=== PATIENT | female | born 1985 | race Caucasian/White ===

== ENCOUNTER 2020-10-09 08:02 | Outpatient (CLI) | payer OTHER | END 2020-10-09 08:03 | disposition home or self-care (01) | LOC: CSHCT 08:02 | PROVIDERS: ATTEND Student in an Organized Health Care Education/Training Program | DX: R61 Generalized hyperhidrosis (principal); N63.20 Unspecified lump in the left breast, unspecified quadrant | CPT/HCPCS: 71270 ==

== ENCOUNTER 2021-11-07 06:47 | Emergency (ER) | payer MEDICAID, OTHER ==
[2021-11-07] MEDS ORDERED: Ondansetron PF 4 MG/2 ML Vial ONE ×2 (07:39→09:40)
[2021-11-07 07:55] LABS: #Monocytes 0.4 10x3/uL (0.0-1.1); #Neutrophils 4.5 10x3/uL (1.5-8.4); %Basophils 0.3 % (0.0-2.0); %Eosinophils 0.3 % (0.0-6.0); %Lymphocytes 18.2 % (18.0-47.0); %Monocytes 6.6 % (0.0-10.0); %Neutrophils 74.4 % (40.0-75.0); Hemoglobin 12.8 g/dL (12.0-15.5); Mean Corpuscular HGB CONC 35.6 g/dL (32.0-36.0); Mean Corpuscular Hemoglobin 31.8 pg (27.0-33.0); Mean Corpuscular Volume 89.6 fl (81.6-98.3); Mean Platelet Volume 9.9 fl (7.4-10.4); Platelet Count 247 10x3/uL (150-450); Red Blood Cell (RBC) Count 4.02 10x6/uL (3.90-5.03); White Blood Cell (WBC) Count 6.1 10x3/uL (3.5-10.5)
[2021-11-07 08:00] LABS: BHCG - Serum Negative (NEGATIVE); Pregs Control Background? CLEAR/WHITE (CLR/WHITE); Pregs Control Bar Appear? YES (CONTROL BAR)
[2021-11-07 08:12] LABS: ALT (SGPT) 8 U/L (8-55); AST (SGOT) 14 U/L (5-34); Albumin 4.3 g/dL (3.5-5.0); Alkaline Phosphatase 48 U/L (40-110); Anion Gap 13 mmol/L (10-20); BUN (Urea Nitrogen) 14 mg/dL (7.0-18.7); Bilirubin, Total 1.3 mg/dL (0.2-1.2); Calc. Creatinine Clearance 0 mL/min (70-130); Carbon Dioxide 21 mmol/L (22-29); Chloride 109 mmol/L (98-107); Globulin 2.6 g/dL (2.4-3.5); Glucose 101 mg/dL (70-105); Potassium 3.8 mmol/L (3.5-5.1); Protein, Total 6.9 g/dL (6.0-8.3); Sodium 139 mmol/L (136-145)
[2021-11-07] MEDS ORDERED: Dicyclomine 20 MG/2 ML VIAL ONE (09:40)
[2021-11-07 10:02] LABS: Bilirubin Neg (Negative); Blood, Urine 250 (Negative); Glucose, Urine (Dipstick) Normal (Negative); Ketone, Urine 15 mg/dL (Negative); Leukocyte 100 (Negative); Nitrite Negative (Negative); Protein, Urine (Dipstick) 100 mg/dl (Neg-Trace); Specific Gravity, Urine 1.005 (1.002-1.036); Urobilinogen Normal mg/dL (Less than 2)
[2021-11-07 10:04] LABS: Clarity Cloudy (Clear)
[2021-11-07 10:15] LABS: RBC/HPF Greater than 50 HPF (0-3)
[2021-11-07 10:22] LABS: Bacteria/HPF Rare-Few HPF (None Seen); Squamous Epithelial 0-3 HPF (0-3); Transitional Epithelial 0-3 HPF (None Seen)
== END 2021-11-07 10:55 | disposition home or self-care (01) ==
LOC: CSHERS 06:47
DX: R11.2 Nausea with vomiting, unspecified (principal); R19.7 Diarrhea, unspecified
CPT/HCPCS: 80053; 81003; 81015; 84703; 85025; 96372; 96374; 96376; J0500; J2405

== ENCOUNTER 2022-01-17 16:04 | Emergency (ER) | payer OTHER ==
[2022-01-17 16:39] LABS: Bilirubin Neg (Negative); Blood, Urine 150 (Negative); Clarity Clear (Clear); Glucose, Urine (Dipstick) Normal (Negative); Ketone, Urine Negative (Negative); Leukocyte 100 (Negative); Nitrite Negative (Negative); Protein, Urine (Dipstick) 30 mg/dl (Neg-Trace); Specific Gravity, Urine 1.025 (1.002-1.036); Urobilinogen Normal mg/dL (Less than 2)
[2022-01-17 16:40] LABS: Pregnancy Test - Urine (BHCG) Negative (Negative); Pregu Control Background? CLEAR/WHITE (CLR/WHITE); Pregu Control Bar Appear? YES (CONTROL BAR); Specific Gravity 1.025 (1.002-1.036)
[2022-01-17 16:52] LABS: #Monocytes 0.5 10x3/uL (0.0-1.1); #Neutrophils 6.7 10x3/uL (1.5-8.4); %Basophils 0.4 % (0.0-2.0); %Eosinophils 0.5 % (0.0-6.0); %Lymphocytes 14.7 % (18.0-47.0); %Monocytes 5.6 % (0.0-10.0); %Neutrophils 78.4 % (40.0-75.0); Hemoglobin 13.1 g/dL (12.0-15.5); Mean Corpuscular HGB CONC 34.4 g/dL (32.0-36.0); Mean Corpuscular Hemoglobin 31.9 pg (27.0-33.0); Mean Corpuscular Volume 92.7 fl (81.6-98.3); Platelet Count 242 10x3/uL (150-450); Red Blood Cell (RBC) Count 4.11 10x6/uL (3.90-5.03); White Blood Cell (WBC) Count 8.5 10x3/uL (3.5-10.5)
[2022-01-17] MEDS ORDERED: Morphine 4 MG/ML VIAL ONE (16:58)
[2022-01-17] MEDS ORDERED: Ondansetron PF 4 MG/2 ML Vial ONE (16:58)
[2022-01-17 16:59] LABS: Squamous Epithelial 0-3 HPF (0-3)
[2022-01-17 17:00] LABS: Bacteria/HPF Rare-Few HPF (None Seen); Mucous/LPF Rare LPF (<2+)
[2022-01-17 17:05] LABS: ALT (SGPT) 9 U/L (8-55); AST (SGOT) 11 U/L (5-34); Albumin 4.3 g/dL (3.5-5.0); Alkaline Phosphatase 53 U/L (40-110); Anion Gap 11 mmol/L (10-20); BUN (Urea Nitrogen) 10 mg/dL (7.0-18.7); Bilirubin, Total 0.8 mg/dL (0.2-1.2); Calc. Creatinine Clearance 0 mL/min (70-130); Calcium 9.2 mg/dL (7.8-10.44); Carbon Dioxide 23 mmol/L (22-29); Chloride 109 mmol/L (98-107); Estimated GFR 109; Globulin 2.8 g/dL (2.4-3.5); Glucose 111 mg/dL (70-105); Lipase 12 U/L (8-78); Potassium 3.6 mmol/L (3.5-5.1); Protein, Total 7.1 g/dL (6.0-8.3); Sodium 139 mmol/L (136-145)
[2022-01-17] MEDS ORDERED: Ketorolac Tromethamine 30 MG/ML VIAL ONE (19:08)
[2022-01-17] MEDS ORDERED: cefTRIAXone\\ROCEPHIN 500 MG VIAL ONE (20:29)
[2022-01-17] MEDS ORDERED: Lidocaine 1% MPF 2 ML VIAL ONE (20:30)
[2022-01-18 12:59] LABS: Chlamydia by PCR Not Detected (NotDetected); GC by PCR Not Detected (NotDetected)
== END 2022-01-17 20:37 | disposition home or self-care (01) ==
LOC: CSHERS 16:04
DX: N83.201 Unspecified ovarian cyst, right side (principal); K58.9 Irritable bowel syndrome, unspecified
CPT/HCPCS: 74176; 80053; 81003; 81015; 81025; 83690; 85025; 87480; 87491; 87510; 87591; 87660; 96361; 96372; 96374; 96375; J0696; J1885; J2270; J2405

== ENCOUNTER 2022-06-18 11:54 | Emergency (ER) | payer OTHER ==
[2022-06-18 13:01] LABS: #Monocytes 0.4 10x3/uL (0.0-1.1); #Neutrophils 5.1 10x3/uL (1.5-8.4); %Basophils 0.1 % (0.0-2.0); %Eosinophils 0.4 % (0.0-6.0); %Neutrophils 75.2 % (40.0-75.0); Hemoglobin 13.3 g/dL (12.0-15.5); Mean Corpuscular HGB CONC 34.6 g/dL (32.0-36.0); Mean Corpuscular Hemoglobin 31.7 pg (27.0-33.0); Mean Corpuscular Volume 91.4 fl (81.6-98.3); Mean Platelet Volume 9.6 fl (7.4-10.4); Platelet Count 280 10x3/uL (150-450); RBC Distribution Width 12.3 % (11.5-14.5); White Blood Cell (WBC) Count 6.8 10x3/uL (3.5-10.5)
[2022-06-18 13:13] LABS: ALT (SGPT) 12 U/L (8-55); AST (SGOT) 15 U/L (5-34); Albumin 4.5 g/dL (3.5-5.0); Alkaline Phosphatase 46 U/L (40-110); Anion Gap 11 mmol/L (10-20); BUN (Urea Nitrogen) 9 mg/dL (7.0-18.7); Bilirubin, Total 0.9 mg/dL (0.2-1.2); Calc. Creatinine Clearance 0 mL/min (70-130); Calcium 9.3 mg/dL (7.8-10.44); Carbon Dioxide 21 mmol/L (22-29); Chloride 110 mmol/L (98-107); Estimated GFR 118; Globulin 2.7 g/dL (2.4-3.5); Glucose 100 mg/dL (70-105); Lipase 9 U/L (8-78); Protein, Total 7.2 g/dL (6.0-8.3); Sodium 138 mmol/L (136-145)
[2022-06-18 13:34] LABS: Bilirubin Neg (Negative); Blood, Urine 50 (Negative); Clarity Clear (Clear); Glucose, Urine (Dipstick) Normal (Negative); Ketone, Urine 150 mg/dL (Negative); Leukocyte Negative (Negative); Nitrite Negative (Negative); Protein, Urine (Dipstick) Negative (Neg-Trace); Specific Gravity, Urine 1.025 (1.005-1.030); Urobilinogen Normal mg/dL (Less than 2)
[2022-06-18 13:35] LABS: Pregnancy Test - Urine (BHCG) POSITIVE (Negative); Pregu Control Background? CLEAR/WHITE (CLR/WHITE); Pregu Control Bar Appear? YES (CONTROL BAR); Specific Gravity 1.025 (1.002-1.036)
[2022-06-18] MEDS ORDERED: Ondansetron PF 4 MG/2 ML Vial ONE ×2 (13:54→16:40)
[2022-06-18 13:58] LABS: Bacteria/HPF 2+ HPF (None Seen); Squamous Epithelial 0-3 HPF (0-3); Transitional Epithelial 0-3 HPF (None Seen); WBC/HPF 0-3 HPF (0-3)
[2022-06-18] MEDS ORDERED: Dicyclomine 20 MG TAB ONE (16:42)
== END 2022-06-18 17:00 | disposition home or self-care (01) ==
LOC: CSHERS 11:54
DX: O21.9 Vomiting of pregnancy, unspecified (principal); O26.91 Pregnancy related conditions, unspecified, first trimester; R10.10 Upper abdominal pain, unspecified; R82.71 Bacteriuria; Z3A.01 Less than 8 weeks gestation of pregnancy
CPT/HCPCS: 36415; 80053; 81003; 81015; 81025; 83690; 85025; 87086; 96361; 96374; 96376; J2405

== ENCOUNTER 2022-06-22 10:07 | Emergency (ER) | payer OTHER ==
[2022-06-22 11:44] LABS: #Monocytes 0.5 10x3/uL (0.0-1.1); #Neutrophils 5.6 10x3/uL (1.5-8.4); %Basophils 0.3 % (0.0-2.0); %Eosinophils 0.5 % (0.0-6.0); %Lymphocytes 17.8 % (18.0-47.0); %Monocytes 6.1 % (0.0-10.0); Hemoglobin 13.5 g/dL (12.0-15.5); Mean Corpuscular HGB CONC 35.1 g/dL (32.0-36.0); Mean Corpuscular Hemoglobin 31.7 pg (27.0-33.0); Mean Corpuscular Volume 90.4 fl (81.6-98.3); Platelet Count 255 10x3/uL (150-450); Red Blood Cell (RBC) Count 4.26 10x6/uL (3.90-5.03); White Blood Cell (WBC) Count 7.5 10x3/uL (3.5-10.5)
[2022-06-22 12:12] LABS: ALT (SGPT) 7 U/L (8-55); AST (SGOT) 15 U/L (5-34); Albumin 4.4 g/dL (3.5-5.0); Alkaline Phosphatase 46 U/L (40-110); Anion Gap 13 mmol/L (10-20); BUN (Urea Nitrogen) 10 mg/dL (7.0-18.7); Bilirubin, Total 0.9 mg/dL (0.2-1.2); Calc. Creatinine Clearance 0 mL/min (70-130); Calcium 9.4 mg/dL (7.8-10.44); Carbon Dioxide 21 mmol/L (22-29); Chloride 106 mmol/L (98-107); Estimated GFR 118; Globulin 2.7 g/dL (2.4-3.5); Glucose 79 mg/dL (70-105); Lipase 8 U/L (8-78); Potassium 3.7 mmol/L (3.5-5.1); Protein, Total 7.1 g/dL (6.0-8.3); Sodium 136 mmol/L (136-145)
[2022-06-22] MEDS ORDERED: Promethazine HCl 25 MG/ML VIAL ONE (12:45)
[2022-06-22 12:56] LABS: Bilirubin Neg (Negative); Blood, Urine 10 (Negative); Clarity Clear (Clear); Glucose, Urine (Dipstick) Normal (Negative); Ketone, Urine 150 mg/dL (Negative); Leukocyte 25 (Negative); Nitrite Negative (Negative); Protein, Urine (Dipstick) Negative (Neg-Trace); Specific Gravity, Urine 1.015 (1.005-1.030); Urobilinogen Normal mg/dL (Less than 2)
[2022-06-22 13:09] LABS: Bacteria/HPF Rare-Few HPF (None Seen); RBC/HPF 0-3 HPF (0-3); Squamous Epithelial 0-3 HPF (0-3); WBC/HPF 0-3 HPF (0-3)
== END 2022-06-22 14:10 | disposition home or self-care (01) ==
LOC: CSHERS 10:07
DX: O21.0 Mild hyperemesis gravidarum (principal); Z3A.01 Less than 8 weeks gestation of pregnancy
CPT/HCPCS: 80053; 81003; 81015; 83690; 85025; 96361; 96374; 96375; J2550

== ENCOUNTER 2022-06-28 17:40 | Emergency (ER) | payer MEDICAID, OTHER ==
[2022-06-28 18:33] LABS: Bilirubin Neg (Negative); Blood, Urine 250 (Negative); Clarity Clear (Clear); Glucose, Urine (Dipstick) Normal (Negative); Ketone, Urine 50 mg/dL (Negative); Leukocyte Negative (Negative); Nitrite Negative (Negative); Protein, Urine (Dipstick) Negative (Neg-Trace); Urobilinogen Normal mg/dL (Less than 2); pH, Urine 6.5 (5.0-9.0)
[2022-06-28 18:37] LABS: #Basophils 0.1 10x3/uL (0.0-0.2); #Monocytes 0.5 10x3/uL (0.0-1.1); #Neutrophils 7.8 10x3/uL (1.5-8.4); %Basophils 0.5 % (0.0-2.0); %Eosinophils 0.3 % (0.0-6.0); %Lymphocytes 18.9 % (18.0-47.0); %Monocytes 5.1 % (0.0-10.0); %Neutrophils 74.7 % (40.0-75.0); Hemoglobin 14.5 g/dL (12.0-15.5); Mean Corpuscular HGB CONC 35.8 g/dL (32.0-36.0); Mean Corpuscular Hemoglobin 32.1 pg (27.0-33.0); Mean Corpuscular Volume 89.6 fl (81.6-98.3); Mean Platelet Volume 10.1 fl (7.4-10.4); Platelet Count 285 10x3/uL (150-450); RBC Distribution Width 11.9 % (11.5-14.5); Red Blood Cell (RBC) Count 4.52 10x6/uL (3.90-5.03); White Blood Cell (WBC) Count 10.4 10x3/uL (3.5-10.5)
[2022-06-28 18:42] LABS: Bacteria/HPF 1+ HPF (None Seen); RBC/HPF 0-3 HPF (0-3); Squamous Epithelial 0-3 HPF (0-3); WBC/HPF 0-3 HPF (0-3)
== END 2022-06-28 19:53 | disposition home or self-care (01) ==
LOC: CSHERS 17:40
DX: O20.0 Threatened abortion (principal); O23.41 Unspecified infection of urinary tract in pregnancy, first trimester; N39.0 Urinary tract infection, site not specified; Z3A.01 Less than 8 weeks gestation of pregnancy
CPT/HCPCS: 76856; 81003; 81015; 83690; 84702; 85025; 86900; 86901; 87086

== ENCOUNTER 2022-06-30 09:02 | Emergency (ER) | payer OTHER ==
[2022-06-30 09:52] LABS: #Monocytes 0.4 10x3/uL (0.0-1.1); #Neutrophils 6.7 10x3/uL (1.5-8.4); %Basophils 0.5 % (0.0-2.0); %Eosinophils 0.4 % (0.0-6.0); %Lymphocytes 15.3 % (18.0-47.0); %Monocytes 4.4 % (0.0-10.0); %Neutrophils 79.2 % (40.0-75.0); Hemoglobin 14.1 g/dL (12.0-15.5); Mean Corpuscular HGB CONC 35.4 g/dL (32.0-36.0); Mean Corpuscular Volume 90.2 fl (81.6-98.3); Mean Platelet Volume 9.9 fl (7.4-10.4); Platelet Count 288 10x3/uL (150-450); Red Blood Cell (RBC) Count 4.41 10x6/uL (3.90-5.03); White Blood Cell (WBC) Count 8.4 10x3/uL (3.5-10.5)
[2022-06-30 10:00] LABS: Bilirubin Neg (Negative); Blood, Urine 250 (Negative); Clarity Cloudy (Clear); Glucose, Urine (Dipstick) Normal (Negative); Ketone, Urine 15 mg/dL (Negative); Leukocyte 25 (Negative); Nitrite Negative (Negative); Protein, Urine (Dipstick) 100 mg/dl (Neg-Trace); Specific Gravity, Urine 1.025 (1.005-1.030); Urobilinogen Normal mg/dL (Less than 2)
[2022-06-30 10:11] LABS: RBC/HPF Greater than 50 HPF (0-3)
[2022-06-30 10:13] LABS: Bacteria/HPF Rare-Few HPF (None Seen); Mucous/LPF 1+ LPF (<2+)
[2022-06-30] MEDS ORDERED: Promethazine HCl 25 MG/ML VIAL ONE (11:14)
[2022-06-30] MEDS ORDERED: Acetaminophen 500 MG TAB ONE (11:50)
[2022-06-30 12:55] LABS: Anion Gap 15 mmol/L (10-20); BUN (Urea Nitrogen) 9 mg/dL (7.0-18.7); Calc. Creatinine Clearance 0 mL/min (70-130); Calcium 9.9 mg/dL (7.8-10.44); Carbon Dioxide 19 mmol/L (22-29); Chloride 107 mmol/L (98-107); Estimated GFR 112; Glucose 106 mg/dL (70-105); Sodium 137 mmol/L (136-145)
[2022-06-30] MEDS ORDERED: Metoclopramide HCl 10 MG/2 ML VIAL ONE (13:44)
== END 2022-06-30 16:09 | disposition home or self-care (01) ==
LOC: CSHERS 09:02
DX: O20.0 Threatened abortion (principal); E86.0 Dehydration; Z3A.01 Less than 8 weeks gestation of pregnancy
CPT/HCPCS: 36415; 76856; 80048; 81003; 81015; 84702; 85025; 87086; 96365; 96372; J2550; J2765

== ENCOUNTER 2022-07-05 19:05 | Emergency (ER) | payer OTHER ==
[2022-07-05] MEDS ORDERED: Metoclopramide HCl 10 MG/2 ML VIAL ONE (19:34)
[2022-07-05] MEDS ORDERED: diphenhydrAMINE 50 MG/ML VIAL ONE (19:34)
[2022-07-05 19:44] LABS: #Monocytes 0.4 10x3/uL (0.0-1.1); #Neutrophils 9.9 10x3/uL (1.5-8.4); %Basophils 0.3 % (0.0-2.0); %Lymphocytes 7.9 % (18.0-47.0); %Monocytes 3.3 % (0.0-10.0); Hemoglobin 13.9 g/dL (12.0-15.5); Mean Corpuscular HGB CONC 35.5 g/dL (32.0-36.0); Mean Corpuscular Hemoglobin 31.9 pg (27.0-33.0); Mean Corpuscular Volume 89.7 fl (81.6-98.3); Mean Platelet Volume 10.1 fl (7.4-10.4); Platelet Count 283 10x3/uL (150-450); RBC Distribution Width 11.8 % (11.5-14.5); Red Blood Cell (RBC) Count 4.36 10x6/uL (3.90-5.03); White Blood Cell (WBC) Count 11.3 10x3/uL (3.5-10.5)
[2022-07-05 19:47] LABS: ALT (SGPT) 11 U/L (8-55); AST (SGOT) 12 U/L (5-34); Albumin 4.5 g/dL (3.5-5.0); Alkaline Phosphatase 45 U/L (40-110); Anion Gap 18 mmol/L (10-20); BUN (Urea Nitrogen) 11 mg/dL (7.0-18.7); Bilirubin, Total 1.1 mg/dL (0.2-1.2); Calc. Creatinine Clearance 0 mL/min (70-130); Calcium 9.7 mg/dL (7.8-10.44); Carbon Dioxide 18 mmol/L (22-29); Chloride 105 mmol/L (98-107); Estimated GFR 112; Globulin 2.9 g/dL (2.4-3.5); Glucose 116 mg/dL (70-105); Protein, Total 7.4 g/dL (6.0-8.3); Sodium 137 mmol/L (136-145)
[2022-07-05] MEDS ORDERED: Acetaminophen 500 MG TAB ONE (21:14)
[2022-07-05] MEDS ORDERED: Famotidine/PF 20 mg/2ml Vial ONE (22:17)
[2022-07-05] MEDS ORDERED: Promethazine HCl 25 MG/ML VIAL ONE (22:33)
[2022-07-05 22:37] LABS: Bilirubin Neg (Negative); Blood, Urine 250 (Negative); Clarity Clear (Clear); Glucose, Urine (Dipstick) Normal (Negative); Ketone, Urine 150 mg/dL (Negative); Leukocyte Negative (Negative); Nitrite Negative (Negative); Protein, Urine (Dipstick) 30 mg/dl (Neg-Trace); Urobilinogen Normal mg/dL (Less than 2)
[2022-07-05 22:47] LABS: Bacteria/HPF 1+ HPF (None Seen); RBC/HPF 0-3 HPF (0-3); Squamous Epithelial 0-3 HPF (0-3); WBC/HPF 0-3 HPF (0-3)
== END 2022-07-05 23:40 | disposition home or self-care (01) ==
LOC: CSHERS 19:05
DX: O21.0 Mild hyperemesis gravidarum (principal); O99.281 Endocrine, nutritional and metabolic diseases complicating pregnancy, first trimester; Z3A.01 Less than 8 weeks gestation of pregnancy; D72.829 Elevated white blood cell count, unspecified
CPT/HCPCS: 80053; 81003; 81015; 84702; 85025; 87086; 96361; 96374; 96375; J1200; J2550; J2765; S0028

== ENCOUNTER 2022-07-15 17:49 | Inpatient (IN) | payer OTHER ==
[2022-07-15 18:58] LABS: #Monocytes 0.5 10x3/uL (0.0-1.1); #Neutrophils 8.7 10x3/uL (1.5-8.4); %Basophils 0.2 % (0.0-2.0); %Eosinophils 0.1 % (0.0-6.0); %Monocytes 4.4 % (0.0-10.0); %Neutrophils 84.9 % (40.0-75.0); Hemoglobin 13.7 g/dL (12.0-15.5); Mean Corpuscular HGB CONC 36.6 g/dL (32.0-36.0); Mean Corpuscular Hemoglobin 31.9 pg (27.0-33.0); Platelet Count 265 10x3/uL (150-450); RBC Distribution Width 11.9 % (11.5-14.5); White Blood Cell (WBC) Count 10.2 10x3/uL (3.5-10.5)
[2022-07-15 19:09] LABS: ALT (SGPT) 11 U/L (8-55); AST (SGOT) 14 U/L (5-34); Albumin 4.3 g/dL (3.5-5.0); Alkaline Phosphatase 39 U/L (40-110); Anion Gap 16 mmol/L (10-20); BUN (Urea Nitrogen) 9 mg/dL (7.0-18.7); Bilirubin, Total 1.4 mg/dL (0.2-1.2); Calc. Creatinine Clearance 0 mL/min (70-130); Calcium 9.6 mg/dL (7.8-10.44); Carbon Dioxide 18 mmol/L (22-29); Chloride 105 mmol/L (98-107); Estimated GFR 119; Globulin 2.8 g/dL (2.4-3.5); Glucose 88 mg/dL (70-105); Lipase 9 U/L (8-78); Potassium 3.7 mmol/L (3.5-5.1); Protein, Total 7.1 g/dL (6.0-8.3); Sodium 135 mmol/L (136-145)
[2022-07-15 20:40] LABS: Bilirubin Neg (Negative); Blood, Urine 50 (Negative); Clarity Clear (Clear); Glucose, Urine (Dipstick) Normal (Negative); Ketone, Urine 150 mg/dL (Negative); Leukocyte Negative (Negative); Nitrite Negative (Negative); Protein, Urine (Dipstick) 30 mg/dl (Neg-Trace); Urobilinogen Normal mg/dL (Less than 2)
[2022-07-15] MEDS ORDERED: Meclizine HCl 25 MG TAB ONE (20:40)
[2022-07-15 20:52] LABS: Bacteria/HPF 3+ HPF (None Seen); Mucous/LPF 4+ LPF (<2+); RBC/HPF 0-3 HPF (0-3); Squamous Epithelial 0-3 HPF (0-3); WBC/HPF 0-3 HPF (0-3)
[2022-07-15] MEDS ORDERED: cefTRIAXone\\ROCEPHIN 1 GM VIAL ONE (21:52)
[2022-07-15 23:42] VITALS: BMI 23.3
[2022-07-15] MEDS ORDERED: hydrALAZINE 20 MG/ML VIAL SLOW IVP PRN (23:55)
[2022-07-16] MEDS ORDERED: Acetaminophen 500 MG TAB PO PRN (00:01)
[2022-07-16] MEDS ORDERED: Promethazine HCl 25 MG in Sodium Chloride 0.9% 50 ML IVPB PRN (00:02)
[2022-07-16] MEDS: Ondansetron PF 4 MG/2 ML Vial IVP PRN ×2 (00:32→17:27)
[2022-07-16 00:57] LABS: Amphetamine Not Detected (NotDetected); Barbiturates Screen Not Detected (NotDetected); Benzodiazepine Screen Not Detected (NotDetected); Cocaine Metabolite Screen Not Detected (NotDetected); Methadone Not Detected (NotDetected); Methamphetamine Not Detected (NotDetected); Opiate Screen Not Detected (NotDetected); Oxycodone Screen Not Detected (NotDetected); Phencyclidine (PCP) Not Detected (NotDetected); THC/Cannabinoid Screen Detected (NotDetected); Tricyclic Screen Not Detected (NotDetected)
[2022-07-16] MEDS: Multivitamins, Adult 10 ML, Folic Acid 1 MG, Thiamine HCl 100 MG in Dextrose 5 %-0.45 %... IV SCH (01:41)
[2022-07-16 02:41] LABS: SARS-CoV-2 NAA Rapid Test Not Detected (NotDetected)
[2022-07-16] MEDS: Metoclopramide HCl 10 MG/2 ML VIAL IVP SCH ×3 (05:38→23:01)
[2022-07-16] MEDS: CEFAZOLIN 1 GM in Sodium Chloride 0.9% 100 ML IVPB SCH ×3 (05:38→23:01)
[2022-07-16] MEDS ORDERED: FLU VACC QS2022-23(6MOS UP)/PF 60 MCG/0.5 ML SYRINGE IM ONE (09:00)
[2022-07-16] MEDS: Lactated Ringer's 1,000 ML IV SCH ×2 (11:06→19:30)
[2022-07-17] MEDS: Multivitamins, Adult 10 ML, Folic Acid 1 MG, Thiamine HCl 100 MG in Dextrose 5 %-0.45 %... IV SCH (00:43)
[2022-07-17] MEDS: Metoclopramide HCl 10 MG/2 ML VIAL IVP SCH ×3 (06:07→21:16)
[2022-07-17] MEDS: CEFAZOLIN 1 GM in Sodium Chloride 0.9% 100 ML IVPB SCH ×3 (06:07→21:16)
[2022-07-17] MEDS: Lactated Ringer's 1,000 ML IV SCH ×3 (06:12→19:15)
[2022-07-17 12:51] LABS: Thyroglobulin Antibody Less than 12.0 IU/mL (<40 Normal); Thyroid Peroxidase IgG Ab Less than 4.0 IU/mL (<25 Normal)
[2022-07-17 20:30] VITALS: BP 98/53; TEMP 98.4
== END 2022-07-17 22:25 | disposition home or self-care (01) | DRG 832 ==
LOC: CSHERS 17:49 → CSHPP 23:27
PROVIDERS: ADMIT Obstetrics & Gynecology; ATTEND Obstetrics & Gynecology
DX: O21.0 Mild hyperemesis gravidarum (principal); N30.00 Acute cystitis without hematuria; O23.11 Infections of bladder in pregnancy, first trimester; O99.341 Other mental disorders complicating pregnancy, first trimester; F41.9 Anxiety disorder, unspecified; F32.A Depression, unspecified; F43.10 Post-traumatic stress disorder, unspecified; Z20.822 Contact with and (suspected) exposure to COVID-19; Z90.49 Acquired absence of other specified parts of digestive tract; Z98.890 Other specified postprocedural states; Z91.012 Allergy to eggs; Z91.011 Allergy to milk products; Z91.014 Allergy to mammalian meats; Z91.018 Allergy to other foods; Z79.899 Other long term (current) drug therapy; Z3A.09 9 weeks gestation of pregnancy; O34.211 Maternal care for low transverse scar from previous cesarean delivery
CPT/HCPCS: 36415; 80053; 80306; 81003; 81015; 83690; 84443; 84702; 85025; 86376; 86800; 87086; 96374; J0690; J0696; J2405; J2550; J2765; J3411; J3490; J7042; J7120

== ENCOUNTER 2022-07-25 19:19 | Emergency (ER) | payer OTHER ==
[2022-07-25 20:08] LABS: Bilirubin Neg (Negative); Blood, Urine 50 (Negative); Clarity Cloudy (Clear); Glucose, Urine (Dipstick) Normal (Negative); Ketone, Urine 150 mg/dL (Negative); Leukocyte Negative (Negative); Nitrite Negative (Negative); Protein, Urine (Dipstick) Negative (Neg-Trace); Urobilinogen Normal mg/dL (Less than 2)
[2022-07-25 20:19] LABS: WBC/HPF 0-3 HPF (0-3)
[2022-07-25 20:20] LABS: Bacteria/HPF 2+ HPF (None Seen); Mucous/LPF 2+ LPF (<2+)
[2022-07-25 20:27] LABS: #Monocytes 0.3 10x3/uL (0.0-1.1); #Neutrophils 6.3 10x3/uL (1.5-8.4); %Basophils 0.3 % (0.0-2.0); %Eosinophils 0.3 % (0.0-6.0); %Lymphocytes 15.9 % (18.0-47.0); %Monocytes 4.3 % (0.0-10.0); %Neutrophils 78.9 % (40.0-75.0); Hemoglobin 12.9 g/dL (12.0-15.5); Mean Corpuscular HGB CONC 35.4 g/dL (32.0-36.0); Mean Corpuscular Hemoglobin 31.5 pg (27.0-33.0); Mean Corpuscular Volume 88.8 fl (81.6-98.3); Mean Platelet Volume 10.3 fl (7.4-10.4); Platelet Count 270 10x3/uL (150-450); RBC Distribution Width 12.2 % (11.5-14.5)
[2022-07-25 20:30] LABS: ALT (SGPT) 11 U/L (8-55); AST (SGOT) 13 U/L (5-34); Albumin 4.1 g/dL (3.5-5.0); Alkaline Phosphatase 37 U/L (40-110); Anion Gap 15 mmol/L (10-20); BUN (Urea Nitrogen) 6 mg/dL (7.0-18.7); Bilirubin, Total 0.7 mg/dL (0.2-1.2); Calc. Creatinine Clearance 0 mL/min (70-130); Calcium 9.3 mg/dL (7.8-10.44); Carbon Dioxide 19 mmol/L (22-29); Chloride 106 mmol/L (98-107); Estimated GFR 121; Globulin 2.6 g/dL (2.4-3.5); Glucose 86 mg/dL (70-105); Lipase 8 U/L (8-78); Potassium 3.7 mmol/L (3.5-5.1); Protein, Total 6.7 g/dL (6.0-8.3); Sodium 136 mmol/L (136-145)
[2022-07-25] MEDS ORDERED: Acetaminophen 500 MG TAB ONE (22:28)
[2022-07-25] MEDS ORDERED: Ondansetron PF 4 MG/2 ML Vial ONE (22:46)
== END 2022-07-25 23:13 | disposition home or self-care (01) ==
LOC: CSHERS 19:19
DX: O99.891 Other specified diseases and conditions complicating pregnancy (principal); R10.84 Generalized abdominal pain; Z3A.10 10 weeks gestation of pregnancy
CPT/HCPCS: 76801; 80053; 81003; 81015; 83690; 85025; 96374; J2405

== ENCOUNTER 2022-08-30 07:49 | Outpatient (CLI) | payer OTHER | END 2022-08-30 07:50 | disposition home or self-care (01) | LOC: CSHULT 07:49 | PROVIDERS: ATTEND Obstetrics & Gynecology | DX: N63.20 Unspecified lump in the left breast, unspecified quadrant (principal) ==

== ENCOUNTER 2022-09-04 16:54 | Emergency (ER) | payer OTHER ==
[2022-09-04 18:03] LABS: Bilirubin Neg (Negative); Blood, Urine Negative (Negative); Clarity Clear (Clear); Glucose, Urine (Dipstick) Normal (Negative); Ketone, Urine Negative (Negative); Leukocyte Negative (Negative); Nitrite Negative (Negative); Protein, Urine (Dipstick) Negative (Neg-Trace); Specific Gravity, Urine 1.015 (1.005-1.030); Urobilinogen Normal mg/dL (Less than 2)
[2022-09-04] MEDS ORDERED: Acetaminophen 325 MG TAB ONE (19:00)
== END 2022-09-04 19:55 | disposition home or self-care (01) ==
LOC: CSHERS 16:54
DX: O99.891 Other specified diseases and conditions complicating pregnancy (principal); R10.2 Pelvic and perineal pain; Z3A.16 16 weeks gestation of pregnancy
CPT/HCPCS: 76815; 81003

== ENCOUNTER 2022-11-24 19:50 | Day surgery (SDC) | payer OTHER ==
[2022-11-24 20:17] VITALS: BMI 28.7
[2022-11-24] MEDS ORDERED: Acetaminophen 500 MG TAB PO PRN (21:10)
[2022-11-24] MEDS ORDERED: hydrALAZINE 20 MG/ML VIAL SLOW IVP PRN (21:10)
[2022-11-24] MEDS ORDERED: Cyclobenzaprine 10 MG TAB PO SCH (21:15)
[2022-11-24 21:44] LABS: #Monocytes 0.5 10x3/uL (0.0-1.1); #Neutrophils 8.7 10x3/uL (1.5-8.4); %Basophils 0.2 % (0.0-2.0); %Eosinophils 0.2 % (0.0-6.0); %Lymphocytes 10.5 % (18.0-47.0); %Monocytes 4.5 % (0.0-10.0); %Neutrophils 84.1 % (40.0-75.0); Hemoglobin 11.5 g/dL (12.0-15.5); Mean Corpuscular HGB CONC 34.4 g/dL (32.0-36.0); Mean Platelet Volume 9.5 fl (7.4-10.4); Platelet Count 253 10x3/uL (150-450); RBC Distribution Width 12.1 % (11.5-14.5); Red Blood Cell (RBC) Count 3.59 10x6/uL (3.90-5.03); White Blood Cell (WBC) Count 10.4 10x3/uL (3.5-10.5)
[2022-11-24 21:51] LABS: Bilirubin Neg (Negative); Blood, Urine Negative (Negative); Clarity Clear (Clear); Glucose, Urine (Dipstick) Normal (Negative); Ketone, Urine Negative (Negative); Leukocyte Negative (Negative); Nitrite Negative (Negative); Protein, Urine (Dipstick) Negative (Neg-Trace); Specific Gravity, Urine 1.005 (1.005-1.030); Urobilinogen Normal mg/dL (Less than 2)
[2022-11-24 21:58] LABS: ALT (SGPT) 10 U/L (8-55); AST (SGOT) 13 U/L (5-34); Albumin 3.3 g/dL (3.5-5.0); Alkaline Phosphatase 61 U/L (40-110); Anion Gap 12 mmol/L (10-20); BUN (Urea Nitrogen) 9 mg/dL (7.0-18.7); Bilirubin, Total 0.3 mg/dL (0.2-1.2); Calc. Creatinine Clearance 141 mL/min (70-130); Calcium 8.9 mg/dL (7.8-10.44); Carbon Dioxide 23 mmol/L (22-29); Chloride 108 mmol/L (98-107); Estimated GFR 119; Globulin 2.6 g/dL (2.4-3.5); Glucose 89 mg/dL (70-105); Potassium 4.5 mmol/L (3.5-5.1); Protein, Total 5.9 g/dL (6.0-8.3); Sodium 138 mmol/L (136-145)
== END 2022-11-24 23:50 | disposition home or self-care (01) ==
LOC: CSHLD/OP 19:50
PROVIDERS: ATTEND Obstetrics & Gynecology
DX: O99.891 Other specified diseases and conditions complicating pregnancy (principal); M54.9 Dorsalgia, unspecified; O99.613 Diseases of the digestive system complicating pregnancy, third trimester; K58.0 Irritable bowel syndrome with diarrhea; O60.03 Preterm labor without delivery, third trimester; Z3A.28 28 weeks gestation of pregnancy; Z91.012 Allergy to eggs; Z91.011 Allergy to milk products; Z91.018 Allergy to other foods; Z91.048 Other nonmedicinal substance allergy status
CPT/HCPCS: 80053; 81003; 85025; 99284

== ENCOUNTER 2022-11-25 20:34 | Emergency (ER) | payer MEDICAID, OTHER, SELFPAY ==
[2022-11-25] MEDS ORDERED: Boostrix 0.5 ML (Tdap) VIAL (>/=7 yrs of age) ONE (22:01)
== END 2022-11-25 23:01 | disposition home or self-care (01) ==
LOC: CSHERS 20:34
DX: S01.511A Laceration without foreign body of lip, initial encounter (principal); W55.03XA Scratched by cat, initial encounter; Z23 Encounter for immunization
CPT/HCPCS: 12011; 90471; 90715

== ENCOUNTER 2023-02-10 00:06 | Inpatient (IN) | payer OTHER ==
[2023-02-10] MEDS ORDERED: hydrALAZINE 20 MG/ML VIAL SLOW IVP PRN ×3 (00:34→06:23)
[2023-02-10 00:47] LABS: Fetal Membranes Rupture RUPTURE DETECTED (No Rupture)
[2023-02-10 00:48] VITALS: BMI 31.6
[2023-02-10] MEDS ORDERED: Bicitra 30 ML UDCUP PO PRN (01:00)
[2023-02-10] MEDS ORDERED: CEFAZOLIN 2 GM in Sodium Chloride 0.9% 100 ML IVPB SCH (01:00)
[2023-02-10] MEDS ORDERED: Famotidine/PF 20 mg/2ml Vial SLOW IVP PRN (01:00)
[2023-02-10] MEDS ORDERED: Ondansetron PF 4 MG/2 ML Vial IVP PRN ×2 (01:03→02:42)
[2023-02-10] MEDS ORDERED: Promethazine HCl 25 MG/ML VIAL IM PRN ×2 (01:03→02:42)
[2023-02-10] MEDS ORDERED: Lactated Ringer's 1,000 ML IV SCH (01:15)
[2023-02-10 02:31] LABS: Hematocrit 34.6 % (34.9-44.5); Hemoglobin 12.1 g/dL (12.0-15.5); Mean Corpuscular Hemoglobin 31.8 pg (27.0-33.0); Mean Corpuscular Volume 91.1 fl (81.6-98.3); Mean Platelet Volume 9.9 fl (7.4-10.4); Platelet Count 238 10x3/uL (150-450); RBC Distribution Width 12.8 % (11.5-14.5)
[2023-02-10 02:37] LABS: HIV (1/2) Antibody/Antigen Non-Reactive (NonReactive)
[2023-02-10 02:38] LABS: HBSAg Index 0.17 S/CO (0-0.99); Hep B Surf Ag - L&D Non-Reactive S/CO (NonReactive); Syphilis Antibody Nonreactive (Nonreactive); Syphilis Antibody Index 0.03 S/CO (<1.00 Non-Reactive)
[2023-02-10] MEDS ORDERED: Fentanyl 50 MCG/1 ML VIAL SLOW IVP PRN (02:42)
[2023-02-10] MEDS ORDERED: Naloxone HCl 0.4 mg/ml Vial IVP PRN ×2 (02:42)
[2023-02-10] MEDS ORDERED: Moisturizing Cream (Eucerin) 113 GM JAR TOP PRN (02:42)
[2023-02-10] MEDS ORDERED: diphenhydrAMINE 50 MG/ML VIAL IVP PRN (02:42)
[2023-02-10] MEDS ORDERED: Meperidine HCl/PF 25 MG/ML VIAL SLOW IVP PRN (02:42)
[2023-02-10] MEDS ORDERED: Promethazine HCl 25 MG SUPP PR PRN (02:42)
[2023-02-10] MEDS ORDERED: Naloxone HCl 0.4 mg/ml Vial IV PRN (02:42)
[2023-02-10] MEDS ORDERED: Ondansetron HCl/PF 4 MG/2 ML Vial IVP PRN (02:42)
[2023-02-10] MEDS ORDERED: Communication Order-Pharmacy FS SCH (02:45)
[2023-02-10] MEDS ORDERED: Ketorolac Tromethamine 30 MG/ML VIAL IVP SCH (02:45)
[2023-02-10] MEDS ORDERED: Morphine PF 10 MG/10 ML VIAL ONE (03:11)
[2023-02-10] MEDS ORDERED: Dexamethasone 4 mg/ml Vial ONE (03:12)
[2023-02-10] MEDS ORDERED: Phenylephrine 10 MG/ML VIAL ONE (03:12)
[2023-02-10] MEDS ORDERED: Ketorolac Tromethamine 30 MG/ML VIAL ONE (03:12)
[2023-02-10] MEDS ORDERED: Ondansetron PF 4 MG/2 ML Vial ONE (03:12)
[2023-02-10] MEDS ORDERED: Oxytocin 10 UNITS/ML VIAL ONE (03:12)
[2023-02-10] MEDS ORDERED: CEFAZOLIN 2 GM VIAL ONE (03:40)
[2023-02-10] MEDS ORDERED: Azithromycin 500 MG VIAL ONE (03:40)
[2023-02-10] MEDS ORDERED: ePHEDrine Sulfate 50 MG/10 ML VIAL ONE (04:22)
[2023-02-10] MEDS ORDERED: Lanolin Ointment 7 GM TUBE TOP PRN (06:23)
[2023-02-10] MEDS ORDERED: Bisacodyl 10 MG SUPP PR PRN (06:23)
[2023-02-10] MEDS ORDERED: Boostrix 0.5 ML (Tdap) VIAL (>/=7 yrs of age) IM ONE (06:23)
[2023-02-10] MEDS ORDERED: Acetaminophen 325 MG TAB PO PRN (06:23)
[2023-02-10] MEDS ORDERED: NS w/ Oxytocin 30 units 500 ML ONE (06:37)
[2023-02-10] MEDS ORDERED: fentaNYL 50 mcg/mL 1 mL Vial ONE (08:15)
[2023-02-10] MEDS: Docusate 100 MG CAP PO SCH ×2 (10:19→23:45)
[2023-02-10] MEDS: Prenatal Vitamin 1 TAB PO SCH (10:19)
[2023-02-10] MEDS: Ketorolac Tromethamine 30 MG/ML VIAL IVP PRN ×2 (17:26→23:41)
[2023-02-10] MEDS: HYDROcodone/Acetaminophen 5/325 mg Tablet PO PRN ×2 (17:27→23:42)
[2023-02-10] MEDS: diphenhydrAMINE 25 MG CAP PO PRN ×2 (18:27→23:54)
[2023-02-10] MEDS ORDERED: Magnesium Sulfate 20 gm/500 ml 0 GM/0 ML BAG ONE (23:44)
[2023-02-11 03:59] LABS: Hematocrit 32.6 % (34.9-44.5); Hemoglobin 10.9 g/dL (12.0-15.5); Mean Corpuscular HGB CONC 33.4 g/dL (32.0-36.0); Mean Corpuscular Hemoglobin 32.3 pg (27.0-33.0); Mean Corpuscular Volume 96.7 fl (81.6-98.3); Mean Platelet Volume 10.4 fl (7.4-10.4); Platelet Count 192 10x3/uL (150-450); RBC Distribution Width 13.2 % (11.5-14.5); Red Blood Cell (RBC) Count 3.37 10x6/uL (3.90-5.03)
[2023-02-11] MEDS: Ibuprofen 800 MG TAB PO SCH ×3 (05:49→21:15)
[2023-02-11] MEDS: HYDROcodone/Acetaminophen 5/325 mg Tablet PO PRN ×3 (09:10→22:50)
[2023-02-11] MEDS: Prenatal Vitamin 1 TAB PO SCH (09:10)
[2023-02-11] MEDS: Simethicone Chewable 80 MG TAB PO PRN ×2 (09:10→22:50)
[2023-02-11] MEDS: Docusate 100 MG CAP PO SCH ×2 (09:10→21:15)
[2023-02-11] MEDS: diphenhydrAMINE 25 MG CAP PO PRN ×2 (12:18→22:50)
[2023-02-12] MEDS: Ibuprofen 800 MG TAB PO SCH ×2 (05:19→12:54)
[2023-02-12] MEDS: Docusate 100 MG CAP PO SCH (08:04)
[2023-02-12] MEDS: Prenatal Vitamin 1 TAB PO SCH (08:04)
[2023-02-12] MEDS: Simethicone Chewable 80 MG TAB PO PRN (08:04)
[2023-02-12] MEDS: diphenhydrAMINE 25 MG CAP PO PRN ×2 (08:04→12:52)
[2023-02-12] MEDS: HYDROcodone/Acetaminophen 5/325 mg Tablet PO PRN ×2 (08:05→12:50)
[2023-02-12 09:17] VITALS: BP 104/54; TEMP 97.4
== END 2023-02-12 16:40 | disposition home or self-care (01) | DRG 788 ==
LOC: CSHLD/OP 00:06 → CSHLD 01:03 → CSHPP 08:45
PROVIDERS: ADMIT Obstetrics & Gynecology; ATTEND Obstetrics & Gynecology
PROC: 10D00Z1 Extraction of Products of Conception, Low, Open Approach (ICD-10-PCS; principal; 2023-02-10)
DX: O42.02 Full-term premature rupture of membranes, onset of labor within 24 hours of rupture (principal); Z3A.39 39 weeks gestation of pregnancy; Z37.0 Single live birth; O34.211 Maternal care for low transverse scar from previous cesarean delivery; Z91.012 Allergy to eggs; Z91.011 Allergy to milk products; Z91.018 Allergy to other foods; Z91.014 Allergy to mammalian meats; Z91.048 Other nonmedicinal substance allergy status; O32.1XX0 Maternal care for breech presentation, not applicable or unspecified; O34.03 Maternal care for unspecified congenital malformation of uterus, third trimester; Q51.810 Arcuate uterus; Q51.28 Other and unspecified doubling of uterus; Q51.818 Other congenital malformations of uterus; O99.892 Other specified diseases and conditions complicating childbirth; O77.0 Labor and delivery complicated by meconium in amniotic fluid
CPT/HCPCS: 51702; 84112; 85027; 86780; 86850; 86900; 86901; 87340; 87389; 99285; J1100; J1200; J1885; J2274; J2370; J2405; J2590; J3010